=== PATIENT | female | born 1975 | race African-American/Black ===

== ENCOUNTER 2022-05-06 08:49 | Emergency (ER) | payer OTHER ==
[~2022-05-06] VITALS: Ht 167.6 cm; Wt 74.8 kg
[2022-05-06 08:49] VITALS: BP 119/82
--- NOTE | 2022-05-06 08:49 | NUR ---
BIBS C/O HEADACHE, CHILLS, AND FEVER OF 89, TOOK TYLENOL [employer]. TOOK A COVID TEST THIS MORNING, NEGATIVE.
[2022-05-06 11:04] LABS: BILIRUBIN,URINE NEGATIVE (NEGATIVE); COLOR,URINE YELLOW (YELLOW); LEUKOCYTE ESTERASE ,URINE NEGATIVE (NEGATIVE); NITRITE, URINE NEGATIVE (NEGATIVE); PH,URINE 5.5 (5.0-8.0); PROTEIN,URINE NEGATIVE (NEGATIVE); UGLUCOSE NEGATIVE (NEGATIVE); UROBILINOGEN,URINE 0.2 EU/dL (0.2)
[2022-05-06 11:14] LABS: BACTERIA,URINE 2+ /HPF (None Seen); RBC,URINE NONE SEEN /HPF (0-2)
--- NOTE | 2022-05-06 11:24 | NUR ---
Patient discharged to home in stable condition. Written and verbal after care instructions given. Patient verbalizes understanding of instruction.
== END 2022-05-06 11:26 | disposition home or self-care (01) ==
LOC: ER 08:53
DX: U07.1 COVID-19 (principal); M54.9 Dorsalgia, unspecified; R73.03 Prediabetes
CPT/HCPCS: 99283; 87086; 84703; 81001; U0003; C9803